=== PATIENT | male | born 1950 | race Caucasian/White ===

== ENCOUNTER 2018-03-18 01:17 | Inpatient (IN) | payer OTHER ==
[2018-03-18] VITALS (7 sets, daily range): BP systolic 114–130; BP diastolic 69–83
[~2018-03-18] VITALS: Ht 175.3 cm; Wt 61.0 kg
[2018-03-18 01:57] LABS: HEMOGLOBIN 12.9 G/DL (12.5-16.6); MCH 31.2 PG (29.0-34.0); MCHC 33.9 G/DL (30.0-36.0); MCV 91.8 FL (86-99); PLATELET COUNT 159 K/uL (156-360); RBC DIS.WIDTH-CV 13.5 % (11.8-14.6); RBC DIS.WIDTH-SD 45.9 % (39-53); RED BLOOD COUNT 4.14 M/uL (4.00-5.50); WHITE BLOOD COUNT 6.9 K/uL (4.1-10.2)
[2018-03-18 02:07] LABS: CHLORIDE 104 mEq/L (99-109); POTASSIUM 4.2 mEq/L (3.7-5.4); SODIUM 142 mEq/L (136-147)
[2018-03-18 02:08] LABS: GLUCOSE 131 mg/dL (70-99)
[2018-03-18 02:12] LABS: CREATININE 1.4 mg/dL (0.6-1.3); GFR ESTIMATE (CALCULATED) 53 mL/min/ (58.99-99999)
[2018-03-18 02:13] LABS: UREA NITROGEN (BUN) 24 mg/dL (9-23)
[2018-03-18 09:51] LABS: BILIRUBIN NEGATIVE; BLOOD NEGATIVE; COLOR YELLOW ((YELLOW)); GLUCOSE (STRIP) NEGATIVE; KETONES NEGATIVE; LEUKOCYTES NEGATIVE; NITRITE NEGATIVE; PROTEIN (STRIP) 30; UROBILINOGEN 0.2 MG/DL (0.2-1.0)
[2018-03-18 09:54] LABS: APPEARANCE CLEAR ((CLEAR)); UCUL ADDED? NO
[2018-03-18] MEDS ORDERED: VITAMIN D31000 UNI2 PO (11:32)
[2018-03-18] MEDS ORDERED: TAMBOCOR150 MG PO (11:32)
[2018-03-18] MEDS ORDERED: MEVACOR40 MG PO (11:32)
[2018-03-18] MEDS ORDERED: LO-DOSE ASPIRIN81 M2 PO (11:32)
[2018-03-18] MEDS ORDERED: CLARITIN10 MG PO (11:33)
== END 2018-03-18 15:55 | disposition home or self-care (01) | DRG 84 ==
LOC: EDBD 01:17 → TRA 01:17 → EME 01:17 → EDOF 05:04 → ENRESERV 05:10 → 4WEST 07:37
PROVIDERS: Emergency Medicine; Internal Medicine Critical Care Medicine
DX: S06.6X9A Traumatic subarachnoid hemorrhage with loss of consciousness of unspecified duration, initial encounter (principal); S01.81XA Laceration without foreign body of other part of head, initial encounter; W06.XXXA Fall from bed, initial encounter; I48.0 Paroxysmal atrial fibrillation; R00.1 Bradycardia, unspecified; E78.5 Hyperlipidemia, unspecified; Z79.82 Long term (current) use of aspirin
CPT/HCPCS: 70450; 80048; 81003; 85027; 87641; 93005; J7030